=== PATIENT | female | born 1990 | race Caucasian/White ===

== ENCOUNTER 2018-11-28 14:48 | Emergency (ER) | payer SELFPAY ==
[~2018-11-28] VITALS: Ht 165.1 cm; Wt 63.6 kg
[2018-11-28 14:53] VITALS: Ht 165.1 cm; Wt 63.6 kg
--- NOTE | 2018-11-28 15:49 | ERD ---
ER Documentation Chief Complaint Chief Complaint VAGINAL BLEEDING AND CRAMPING, 5 WKS HPI 28-year-old female , presents to the emergency department, complaining of vaginal bleeding and cramping pain. The patient states that she is 5 weeks , she has not established care. She denies fevers, no chills, no urinary symptoms. ROS All systems reviewed and are negative except as per history of present illness. Medications Home Meds Active Scripts Acetaminophen* (Tylenol*) 325 Mg Tablet, 2 TAB PO Q8 PRN for PAIN AND OR ELEVATED TEMP, #20 TAB Prov:IRIS LIAO MD 11/28/18 Allergies Allergies: Coded Allergies: No Known Allergy (Unverified , 11/28/18) PMhx/Soc Hx Alcohol Use: Yes Hx Substance Use: No Hx Tobacco Use: No Smoking Status: Never smoker Physical Exam Vitals Vital Signs Date Temp Pulse Resp B/P (MAP) Pulse Ox O2 O2 Flow FiO2 Time Delivery Rate 11/28/18 97.7 67 16 115/75 99 Room Air 18:29 (88) 11/28/18 99.2 71 17 119/76 99 14:53 (90) Physical Exam Const: No acute distress Head: Atraumatic Eyes: Normal Conjunctiva ENT: Normal External Ears, Nose and Mouth. Neck: Full range of motion. No meningismus. Resp: Clear to auscultation bilaterally Cardio: Regular rate and rhythm, no murmurs Abd: Soft, non tender, non distended. Normal bowel sounds Skin: No petechiae or rashes Back: No midline or flank tenderness Ext: No cyanosis, or edema Neur: Awake and alert Psych: Normal Mood and Affect Result Diagram: 11/28/18 1558 Results 24 hrs Laboratory Tests Test 11/28/18 15:58 11/28/18 16:00 11/28/18 16:02 White Blood Count 7.7 10^3/ul Red Blood Count 4.68 10^6/ul Hemoglobin 14.0 g/dl Hematocrit 41.2 % Mean Corpuscular Volume 88.0 fl Mean Corpuscular Hemoglobin 29.9 pg Mean Corpuscular 34.0 g/dl Hemoglobin Concent Red Cell Distribution Width 11.3 % Platelet Count 269 10^3/UL Mean Platelet Volume 9.9 fl Immature Granulocytes % 0.100 % Neutrophils % 66.9 % Lymphocytes % 23.4 % Monocytes % 7.3 % Eosinophils % 1.3 % Basophils % 1.0 % Nucleated Red Blood Cells % 0.0 /100WBC Immature Granulocytes # 0.010 10^3/ul Neutrophils # 5.2 10^3/ul Lymphocytes # 1.8 10^3/ul Monocytes # 0.6 10^3/ul Eosinophils # 0.1 10^3/ul Basophils # 0.1 10^3/ul Nucleated Red Blood Cells # 0.0 10^3/ul Beta HCG, Quantitative 17.3 mIU/ml Bedside Urine pH (LAB) 6.0 Bedside Urine Protein (LAB) Negative Bedside Urine Glucose (UA) Negative Bedside Urine Ketones (LAB) Negative Bedside Urine Blood 2+ Bedside Urine Nitrite (LAB) Negative Bedside Urine Leukocyte Esterase Negative (L POC Beta HCG, Qualitative NEGATIVE Procedures/MDM Vital signs stable, Physical exam unremarkable, abdomen soft, nontender. Patient hemodynamically stable. Differential diagnosis include but not limited to: , ovarian cyst, fibroids, endometriosis, malignancy, dysfunctional bleeding, hematologic condition. Low suspicion for PID, no signs of hypovolemic shock. Pertinent Data: test: Negative Physical examination and clinical presentation consistent most likely with normal menses, negative test During the ED course the patient remained stable, no new complaints. The patient received treatment with Zofran presenting overall improvement of the symptoms. Results and clinical impression discussed with patient who agrees with management. The patient is stable to be treated outpatient and will be discharged home. The patient was instructed to follow up with the primary care provider in the next 48h. If symptoms persist, worsen or new symptoms develop, then patient should return to the ED immediately. Instructions explained and given directly by me to the patient with acknowledgment and demonstrated understanding. Disclaimer: Inadvertent spelling and grammatical errors are likely due to EHR/dictation software use and do not reflect on the overall quality of patient care. Also, please note that the electronic time recorded on this note does not necessarily reflect the actual time of the patient encounter. Departure Diagnosis: Primary Impression: Vaginal bleeding Additional Impression: Negative test Condition: Stable Additional Instructions: Thank you very much for allowing us to participate in your care. Your health and safety is our top priority at [facility]. Call your primary care doctor TOMORROW for an appointment during the next 2-4 days and bring all the information and medications prescribed. Have prescriptions filled and follow precisely the directions on the label. If the symptoms get worse and your provider is unavailable, return to the Emergency Department immediately. IRIS LIAO MD Nov 28, 2018 15:49
[2018-11-28] MEDS ORDERED: ACET325T33 PO (18:00)
[2018-11-28 18:29] VITALS: BP 115/75; PULSE 67; RESP 16
== END 2018-11-28 18:29 | disposition home or self-care (01) ==
LOC: FTE 14:48
DX: N93.8 Other specified abnormal uterine and vaginal bleeding (principal); Z32.02 Encounter for pregnancy test, result negative
CPT/HCPCS: 76801; 76817; 81003; 81025; 84702; 85025